=== PATIENT | male | born 1965 ===

== ENCOUNTER 2016-11-14 16:03 | Emergency (ER) | payer SELFPAY ==
[2016-11-14 16:14] VITALS: BMI 22.0
[2016-11-14 16:15] VITALS: BP 116/84; PULSE 104; RESP 18; TEMP 99.1; O2SAT 100
== END 2016-11-14 16:24 | disposition left against medical advice (07) ==
LOC: C.ER 16:03
DX: R09.89 Other specified symptoms and signs involving the circulatory and respiratory systems (principal); Z02.9 Encounter for administrative examinations, unspecified

== ENCOUNTER 2017-08-30 00:04 | Inpatient (IN) | payer MEDICAID ==
[2017-08-30 00:06] VITALS: BMI 22.0
[2017-08-30] MEDS ORDERED: Lactated Ringer's 1,000 ML IVB STA (00:49)
[2017-08-30 01:03] LABS: BASO % 0.6 % (0.0-2.0); EOS % 0.6 % (0.0-4.0); HEMOGLOBIN 9.6 g/dL (12.0-18.0); LYMPH # 0.4 K/uL (1.0-4.3); LYMPH % 12.1 % (20.0-40.0); MEAN CELL VOLUME 80.8 fL (80.0-94.0); MEAN CORPUSCULAR HEMOGLOBIN 27.7 pg (27.0-31.0); MEAN CORPUSCULAR HGB CONC 34.3 g/dL (33.0-37.0); MEAN PLATELET VOLUME 7.6 fL (7.2-11.7); MONO # 0.6 K/uL (0.0-0.8); MONO % 16.1 % (0.0-10.0); NEUT # 2.5 K/uL (1.8-7.0); NEUT % 70.6 % (50.0-75.0); NRBC % 0.1 % (0.0-2.0); RBC 3.47 Mil/uL (4.40-5.90); RED CELL DISTRIBUTION WIDTH 13.8 % (11.5-14.5); WHITE BLOOD COUNT 3.5 K/uL (4.8-10.8)
[2017-08-30 01:14] LABS: INR 1.2
[2017-08-30 01:15] LABS: ALB/GLOB RATIO 0.9 (1.0-2.1); ALBUMIN 3.3 g/dL (3.5-5.0); ALT/SGPT 25 U/L (21-72); AST/SGOT 41 U/L (17-59); BLOOD UREA NITROGEN 13 mg/dL (9-20); CALCIUM 8.1 mg/dl (8.6-10.4); GFR AFRICAN-AMERICAN > 60; GFR NON-AFRICAN AMERICAN > 60
[2017-08-30] MEDS ORDERED: Lactated Ringer's 1,000 ML ONE (01:15)
[2017-08-30] MEDS ORDERED: Fluconazole IV 400mg/200ml NS 200 ML IVPB STA (01:45)
--- NOTE | 2017-08-30 02:28 | C.PDOC ---
History Of Present Illness Pt c/o painful swallowing. Time Seen by Provider: 08/30/17 00:41 Chief Complaint (Nursing): ENT Problem History Per: Patient Onset/Duration Of Symptoms: Days (about 1 week) Current Symptoms Are (Timing): Worse Symptoms Have Been: Continuous Severity: Moderate Past Medical History Reviewed: Historical Data, Nursing Documentation, Vital Signs Vital Signs: Last Vital Signs Temp 100.0 F H 08/30/17 00:10 Pulse 100 H 08/30/17 00:10 Resp 18 08/30/17 00:10 BP 115/65 08/30/17 00:10 Pulse Ox 100 08/30/17 02:28 - Medical History PMH: Hepatitis (C), HIV (AIDS) Family History: States: Unknown Family Hx - Social History Hx Alcohol Use: No Hx Substance Use: Yes - Immunization History Hx Tetanus Toxoid Vaccination: No Hx Influenza Vaccination: Yes Hx Pneumococcal Vaccination: Yes Review Of Systems Except As Marked, All Systems Reviewed And Found Negative. Constitutional: Positive for: Malaise, Weight loss ENT: Positive for: Mouth Pain, Throat Pain Cardiovascular: Positive for: Chest Pain (esophagus) Respiratory: Positive for: Cough, Sputum. Negative for: Hemoptysis Gastrointestinal: Negative for: Vomiting, Abdominal Pain Genitourinary: Negative for: Dysuria Neurological: Negative for: Weakness, Numbness Physical Exam - Physical Exam Appears: No Acute Distress, Chronically Ill Skin: Normal Color, Warm, Dry Head: Atraumatic, Normacephalic Eye(s): bilateral: PERRL, EOMI Oral Mucosa: No Drooling, No Trismus Tongue: Other (Thrush) Throat: Erythema, No Drooling, No Mass, Other (Thrush) Neck: Normal ROM, Supple Lymphatic: No Adenopathy Cardiovascular: Rhythm Regular Respiratory: Normal Breath Sounds, No Accessory Muscle Use Gastrointestinal/Abdominal: Soft, No Tenderness, No Distention Back: No CVA Tenderness Extremity: Normal ROM, No Pedal Edema, No Calf Tenderness Neurological/Psych: Oriented x3, Normal Speech, Normal Motor, Normal Sensation ED Course And Treatment - Laboratory Results Result Diagrams: 08/30/17 00:59 08/30/17 00:59 Lab Interpretation: Abnormal Interpretation Of Abnormal: Lymphopenia O2 Sat by Pulse Oximetry: 100 Pulse Ox Interpretation: Normal - Radiology CXR: Interpreted by Me, Viewed By Me CXR Interpretation: Yes: No Acute Disease Progress - Interventions Interventions:: Observation, Intravenous fluid - Medications Administered Intravenous: Other (Diflucan) - Data Reviewed Data Reviewed: Lab, Diagnostic imaging, Old records - Continuity of Care Discussed patient case with:: Patient, ED Nurse, On-call PMD-pt unassigned - Patient Plan Patient Plan: Admission Disposition Discussed With : Tho Arteaga Comment: He accepted pt on his service. Doctor Will See Patient In The: Hospital Counseled Patient/Family Regarding: Studies Performed, Diagnosis - Disposition Disposition: HOSPITALIZED Disposition Time: 02:32 Condition: FAIR - Clinical Impression Clinical Impression: Thrush of mouth and esophagus, Odynophagia, History of HIV or AIDS
[2017-08-30] MEDS: Dextrose 5%/Lactated Ringer's 1,000 ML IV SCH ×2 (04:41→16:28)
--- NOTE | 2017-08-30 08:02 | RAD ---
HISTORY: Cough, SOB, h/o HIV COMPARISON: No prior. TECHNIQUE: Chest PA and lateral FINDINGS: LUNGS: Prominent lung markings noted at the inferior medial aspect of the right lung. Otherwise no evidence of focal infiltrate or consolidation in the lungs. PLEURA: No significant pleural effusion identified. No pneumothorax apparent. CARDIOVASCULAR: Normal. OSSEOUS STRUCTURES: No significant abnormalities. VISUALIZED UPPER ABDOMEN: Normal. OTHER FINDINGS: None. IMPRESSION: Prominent lung markings and possible mild bronchiectasis noted at the medial inferior aspect of the right lung. Otherwise no evidence of infiltrate or consolidation in the lungs.
[2017-08-30] MEDS: Tmp-Smz 800 mg-160 mg DS Tab PO SCH (10:52)
[2017-08-30] MEDS: Enoxaparin 30 mg Syringe SC SCH (10:52)
[2017-08-30] MEDS: Fluconazole IV 200mg/100 ml NS 100 ML IVPB SCH (10:53)
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
[2017-08-30] MEDS ORDERED: Efavirenz/Emtricitabine/Teno 1 TAB PO SCH (16:00)
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
[2017-08-30] MEDS ORDERED: Potassium Chloride 20 mEq/15 ml LIQ UD PO ONE (20:30)
[2017-08-31 08:08] LABS: BASO % 0.6 % (0.0-2.0); EOS # 0.1 K/uL (0.0-0.7); EOS % 1.9 % (0.0-4.0); HEMOGLOBIN 9.7 g/dL (12.0-18.0); LYMPH # 0.4 K/uL (1.0-4.3); MEAN CELL VOLUME 80.3 fL (80.0-94.0); MEAN CORPUSCULAR HEMOGLOBIN 27.4 pg (27.0-31.0); MEAN CORPUSCULAR HGB CONC 34.2 g/dL (33.0-37.0); MONO # 0.4 K/uL (0.0-0.8); MONO % 13.3 % (0.0-10.0); NEUT # 2.3 K/uL (1.8-7.0); NEUT % 72.2 % (50.0-75.0); NRBC % 0.1 % (0.0-2.0); PLATELET COUNT 233 K/uL (130-400); RBC 3.52 Mil/uL (4.40-5.90); RED CELL DISTRIBUTION WIDTH 13.9 % (11.5-14.5); WHITE BLOOD COUNT 3.2 K/uL (4.8-10.8)
[2017-08-31 08:34] LABS: ALB/GLOB RATIO 0.7 (1.0-2.1); ALBUMIN 2.4 g/dL (3.5-5.0); ALT/SGPT 21 U/L (21-72); AST/SGOT 29 U/L (17-59); BLOOD UREA NITROGEN 9 mg/dL (9-20); CALCIUM 7.6 mg/dl (8.6-10.4); GFR AFRICAN-AMERICAN > 60; GFR NON-AFRICAN AMERICAN > 60
[2017-08-31 09:04] LABS: ANISOCYTOSIS SLIGHT; BANDS 19 % (0-2); EOSINOPHIL 1 % (0-4); HYPOCHROMIC SLIGHT; LYMPHOCYTE 11 % (20-40); MICROCYTOSIS SLIGHT; MONOCYTE 18 % (0-10); MYELOCYTE 2 % (0-0); NEUTROPHIL 49 % (50-75); PLATELET ESTIMATE NORMAL (NORMAL); POIKILOCYTOSIS SLIGHT; TOTAL CELLS COUNTED 100
[2017-08-31 09:09] LABS: OVALOCYTES SLIGHT
[2017-08-31 09:10] LABS: TOXIC GRANULATION PRESENT
[2017-08-31] MEDS: Dextrose 5%/Lactated Ringer's 1,000 ML IV SCH ×3 (09:45→18:32)
[2017-08-31] MEDS: Tmp-Smz 800 mg-160 mg DS Tab PO SCH ×3 (09:46→21:26)
[2017-08-31] MEDS: Fluconazole IV 200mg/100 ml NS 100 ML IVPB SCH (09:59)
[2017-08-31] MEDS: Enoxaparin 30 mg Syringe SC SCH (09:59)
--- NOTE | 2017-08-31 11:41 | CP.PCM.PN ---
Subjective - Date & Time of Evaluation Date of Evaluation: 08/31/17 Time of Evaluation: 09:00 - Subjective Subjective: WEAK AND FEBRILE REFUSED BLOOD WORK IV ROCEPHIN ADED STARTED HAART RX Objective - Vital Signs/Intake and Output Vital Signs (last 24 hours): Temp Pulse Resp BP Pulse Ox 98.9 F 80 20 111/69 97 08/31/17 07:26 08/31/17 07:26 08/31/17 07:26 08/31/17 07:26 08/31/17 07:26 - Medications Medications: Current Medications Dolutegravir Sodium (Tivicay) 50 mg PO DAILY DRISS PRN Reason: Protocol Emtricitabine/Tenofovir (Truvada 200 Mg-300 Mg) 1 tab PO DAILY DRISS PRN Reason: Protocol Enoxaparin Sodium (Lovenox) 40 mg SC DAILY [facility] Last Admin: 08/31/17 09:59 Dose: 40 mg Dextrose/Lactated Ringer's (Dextrose 5%/Lactated Ringer's) 1,000 mls @ 100 mls/ hr IV .Q10H [facility] Last Admin: 08/31/17 10:32 Dose: 100 mls/hr Fluconazole (Diflucan Iv 200 Mg/100 Ml Ns) 100 mls @ 100 mls/hr IVPB DAILY DRISS PRN Reason: Protocol Last Admin: 08/31/17 09:59 Dose: 100 mls/hr Ceftriaxone Sodium 1 gm/ (Sodium Chloride) 100 mls @ 100 mls/hr IVPB DAILY DRISS PRN Reason: Protocol Tramadol HCl (Ultram) 50 mg PO TID PRN PRN Reason: Pain, moderate (4-7) Last Admin: 08/31/17 10:00 Dose: 50 mg Trimethoprim/Sulfamethoxazole (Bactrim Ds Tab) 1 tab PO Q12H DRISS PRN Reason: Protocol - Labs Labs: 08/31/17 08:01 08/31/17 08:01 PT 13.0 SECONDS (9.7-12.2) H 08/30/17 00:59 INR 1.2 08/30/17 00:59 APTT 23 SECONDS (21-34) 08/30/17 00:59 - Constitutional Appears: Non-toxic, Chronically Ill - Head Exam Head Exam: NORMOCEPHALIC - Eye Exam Eye Exam: PERRL - ENT Exam ENT Exam: Mucous Membranes Dry - Neck Exam Neck Exam: absent: Lymphadenopathy - Respiratory Exam Respiratory Exam: Decreased Breath Sounds - Cardiovascular Exam Cardiovascular Exam: REGULAR RHYTHM - GI/Abdominal Exam GI & Abdominal Exam: Distended, Soft - Rectal Exam Rectal Exam: Deferred - Exam Exam: NORMAL INSPECTION - Extremities Exam Extremities Exam: absent: Pedal Edema - Back Exam Back Exam: absent: CVA tenderness (L), CVA tenderness (R) - Neurological Exam Neurological Exam: Alert, Awake, Oriented x3 - Psychiatric Exam Psychiatric exam: Normal Mood - Skin Skin Exam: Dry Assessment and Plan (1) History of HIV or AIDS Status: Acute (2) Odynophagia Status: Acute (3) Thrush of mouth and esophagus Status: Acute
[2017-08-31] MEDS: cefTRIAXone IV 1 gm in Dextros 50 ML IVPB SCH (12:11)
[2017-08-31] MEDS: Emtricitabine-Tenofovir 200 mg-300 mg Tab PO SCH (12:12)
--- NOTE | 2017-08-31 23:45 | CP.PCM.PN ---
Subjective - Date & Time of Evaluation Date of Evaluation: 08/31/17 Time of Evaluation: 19:00 - Subjective Subjective: Pt seen and evalauted, is complaining of odynophagia, his oral intake is poor, c /o body aches, neck pain, back pain Objective - Vital Signs/Intake and Output Vital Signs (last 24 hours): Temp Pulse Resp BP Pulse Ox 99.0 F 76 20 120/74 98 08/31/17 18:24 08/31/17 16:00 08/31/17 16:00 08/31/17 16:00 08/31/17 16:00 Intake and Output: 08/31/17 09/01/17 18:59 06:59 Intake Total 1200 1280 Balance 1200 1280 - Medications Medications: Current Medications Acetaminophen (Tylenol 325mg Tab) 650 mg PO Q6 PRN PRN Reason: Fever >100.4 F Last Admin: 08/31/17 17:24 Dose: 650 mg Dolutegravir Sodium (Tivicay) 50 mg PO DAILY DRISS PRN Reason: Protocol Last Admin: 08/31/17 12:12 Dose: 50 mg Emtricitabine/Tenofovir (Truvada 200 Mg-300 Mg) 1 tab PO DAILY DRISS PRN Reason: Protocol Last Admin: 08/31/17 12:12 Dose: 1 tab Enoxaparin Sodium (Lovenox) 40 mg SC DAILY [facility] Dextrose/Lactated Ringer's (Dextrose 5%/Lactated Ringer's) 1,000 mls @ 100 mls/ hr IV .Q10H [facility] Last Admin: 08/31/17 18:32 Dose: Not Given Fluconazole (Diflucan Iv 200 Mg/100 Ml Ns) 100 mls @ 100 mls/hr IVPB DAILY DRISS PRN Reason: Protocol Last Admin: 08/31/17 09:59 Dose: 100 mls/hr Ceftriaxone Sodium (Rocephin Iv 1 Gm Duplex) 50 mls @ 100 mls/hr IVPB Q24H [facility]ISS PRN Reason: Protocol Last Admin: 08/31/17 12:11 Dose: 100 mls/hr Tramadol HCl (Ultram) 50 mg PO TID PRN PRN Reason: Pain, moderate (4-7) Last Admin: 08/31/17 21:37 Dose: 50 mg Trimethoprim/Sulfamethoxazole (Bactrim Ds Tab) 1 tab PO QID DRISS PRN Reason: Protocol Last Admin: 08/31/17 21:26 Dose: 1 tab - Labs Labs: 08/31/17 08:01 08/31/17 08:01 PT 13.0 SECONDS (9.7-12.2) H 08/30/17 00:59 INR 1.2 08/30/17 00:59 APTT 23 SECONDS (21-34) 08/30/17 00:59 - Constitutional Appears: No Acute Distress - Head Exam Head Exam: ATRAUMATIC, NORMAL INSPECTION, NORMOCEPHALIC - Eye Exam Eye Exam: EOMI, Normal appearance, PERRL Pupil Exam: NORMAL ACCOMODATION, PERRL - ENT Exam Additional comments: oral candisiasis with white plaques in oral mucosa - Neck Exam Neck Exam: Full ROM, Normal Inspection. absent: Lymphadenopathy - Respiratory Exam Respiratory Exam: Clear to Ausculation Bilateral, NORMAL BREATHING PATTERN - Cardiovascular Exam Cardiovascular Exam: REGULAR RHYTHM, +S1, +S2. absent: Murmur - GI/Abdominal Exam GI & Abdominal Exam: Soft, Normal Bowel Sounds. absent: Tenderness Assessment and Plan (1) History of HIV or AIDS Status: Acute (2) Odynophagia Status: Acute (3) Thrush of mouth and esophagus Status: Acute
[2017-09-01] MEDS: Dextrose 5%/Lactated Ringer's 1,000 ML IV SCH ×3 (01:30→14:19)
[2017-09-01] MEDS ORDERED: Tmp-Smz 800 mg-160 mg DS Tab PO SCH ×2 (10:00)
[2017-09-01] MEDS: Tmp-Smz 800 mg-160 mg DS Tab PO SCH ×4 (10:49→21:32)
[2017-09-01] MEDS: Emtricitabine-Tenofovir 200 mg-300 mg Tab PO SCH (10:50)
[2017-09-01] MEDS: Fluconazole IV 200mg/100 ml NS 100 ML IVPB SCH (10:55)
[2017-09-01] MEDS: Enoxaparin 40 mg Syringe SC SCH (11:00)
--- NOTE | 2017-09-01 11:46 | CP.PCM.PN ---
Subjective - Date & Time of Evaluation Date of Evaluation: 09/01/17 Time of Evaluation: 09:00 - Subjective Subjective: weak cachectic febrile iv rx ordered poor prognosis Objective - Vital Signs/Intake and Output Vital Signs (last 24 hours): Temp Pulse Resp BP Pulse Ox 100.3 F H 80 20 102/61 100 09/01/17 07:49 09/01/17 07:49 09/01/17 07:49 09/01/17 07:49 09/01/17 07:49 Intake and Output: 09/01/17 09/01/17 06:59 18:59 Intake Total 1280 Balance 1280 - Medications Medications: Current Medications Acetaminophen (Tylenol 325mg Tab) 650 mg PO Q6 PRN PRN Reason: Fever >100.4 F Last Admin: 08/31/17 17:24 Dose: 650 mg Dolutegravir Sodium (Tivicay) 50 mg PO DAILY DRISS PRN Reason: Protocol Last Admin: 09/01/17 10:50 Dose: 50 mg Emtricitabine/Tenofovir (Truvada 200 Mg-300 Mg) 1 tab PO DAILY DRISS PRN Reason: Protocol Last Admin: 09/01/17 10:50 Dose: 1 tab Enoxaparin Sodium (Lovenox) 40 mg SC DAILY [facility] Last Admin: 09/01/17 11:00 Dose: 40 mg Dextrose/Lactated Ringer's (Dextrose 5%/Lactated Ringer's) 1,000 mls @ 100 mls/ hr IV .Q10H [facility] Last Admin: 09/01/17 03:42 Dose: 100 mls/hr Fluconazole (Diflucan Iv 200 Mg/100 Ml Ns) 100 mls @ 100 mls/hr IVPB DAILY DRISS PRN Reason: Protocol Last Admin: 09/01/17 10:55 Dose: 100 mls/hr Ceftriaxone Sodium (Rocephin Iv 1 Gm Duplex) 50 mls @ 100 mls/hr IVPB Q24H [facility]ISS PRN Reason: Protocol Last Admin: 08/31/17 12:11 Dose: 100 mls/hr Tramadol HCl (Ultram) 50 mg PO TID PRN PRN Reason: Pain, moderate (4-7) Last Admin: 09/01/17 11:10 Dose: 50 mg Trimethoprim/Sulfamethoxazole (Bactrim Ds Tab) 1 tab PO QID DRISS PRN Reason: Protocol Last Admin: 09/01/17 10:49 Dose: 1 tab - Labs Labs: 08/31/17 08:01 08/31/17 08:01 PT 13.0 SECONDS (9.7-12.2) H 08/30/17 00:59 INR 1.2 08/30/17 00:59 APTT 23 SECONDS (21-34) 08/30/17 00:59 - Constitutional Appears: Cachectic, Chronically Ill - Head Exam Head Exam: NORMOCEPHALIC - Eye Exam Eye Exam: absent: Scleral icterus - ENT Exam ENT Exam: Mucous Membranes Dry. absent: Normal Oropharynx - Neck Exam Neck Exam: absent: Lymphadenopathy - Respiratory Exam Respiratory Exam: Decreased Breath Sounds - Cardiovascular Exam Cardiovascular Exam: REGULAR RHYTHM - GI/Abdominal Exam GI & Abdominal Exam: Distended, Soft - Rectal Exam Rectal Exam: Deferred - Exam Exam: NORMAL INSPECTION Assessment and Plan (1) History of HIV or AIDS Status: Acute (2) Odynophagia Status: Acute (3) Thrush of mouth and esophagus Status: Acute - Assessment and Plan (Free Text) Assessment: await cultures and serologies
[2017-09-01 12:08] LABS: HEMOGLOBIN 10.1 g/dL (12.0-18.0); MEAN CELL VOLUME 80.6 fL (80.0-94.0); MEAN CORPUSCULAR HEMOGLOBIN 26.7 pg (27.0-31.0); MEAN CORPUSCULAR HGB CONC 33.1 g/dL (33.0-37.0); MEAN PLATELET VOLUME 7.7 fL (7.2-11.7); RBC 3.77 Mil/uL (4.40-5.90); RED CELL DISTRIBUTION WIDTH 14.1 % (11.5-14.5)
[2017-09-01 12:12] LABS: WHITE BLOOD COUNT 12.6 K/uL (4.8-10.8)
[2017-09-01 12:14] LABS: ALB/GLOB RATIO 0.8 (1.0-2.1); ALBUMIN 2.7 g/dL (3.5-5.0); ALT/SGPT 19 U/L (21-72); AST/SGOT 32 U/L (17-59); BLOOD UREA NITROGEN 7 mg/dL (9-20); GFR AFRICAN-AMERICAN > 60; GFR NON-AFRICAN AMERICAN > 60
[2017-09-01] MEDS: cefTRIAXone IV 1 gm in Dextros 50 ML IVPB SCH (12:50)
[2017-09-01 15:11] LABS: HEPATITIS B SURFACE AG Negative (NEGATIVE)
[2017-09-01 15:16] LABS: HEPATITIS A IGM NEGATIVE (NEGATIVE); HEPATITIS B CORE AB NEGATIVE (NEGATIVE)
[2017-09-01] MEDS: Oxycodone/Acetaminophen 5/325 mg Tab PO PRN ×2 (16:06→22:43)
[2017-09-01 16:59] LABS: HEPATITIS C ANTIBODY REACTIVE (NEGATIVE)
[2017-09-02] MEDS: Dextrose 5%/Lactated Ringer's 1,000 ML IV SCH (05:24)
--- NOTE | 2017-09-02 09:11 | CP.PCM.PN ---
Subjective - Date & Time of Evaluation Date of Evaluation: 09/01/17 Time of Evaluation: 21:00 - Subjective Subjective: Pt seen and examined at bedside, weak cachectic febrile iv rx ordered poor prognosis Objective - Vital Signs/Intake and Output Vital Signs (last 24 hours): Temp Pulse Resp BP Pulse Ox 98.5 F 78 20 110/69 97 09/02/17 08:07 09/02/17 08:07 09/02/17 08:07 09/02/17 08:07 09/02/17 08:07 Intake and Output: 09/02/17 09/02/17 06:59 18:59 Intake Total 480 Balance 480 - Medications Medications: Current Medications Acetaminophen (Tylenol 325mg Tab) 650 mg PO Q6 PRN PRN Reason: Fever >100.4 F Last Admin: 08/31/17 17:24 Dose: 650 mg Dolutegravir Sodium (Tivicay) 50 mg PO DAILY DRISS PRN Reason: Protocol Last Admin: 09/01/17 10:50 Dose: 50 mg Emtricitabine/Tenofovir (Truvada 200 Mg-300 Mg) 1 tab PO DAILY DRISS PRN Reason: Protocol Last Admin: 09/01/17 10:50 Dose: 1 tab Enoxaparin Sodium (Lovenox) 40 mg SC DAILY [facility] Last Admin: 09/01/17 11:00 Dose: 40 mg Fluconazole (Diflucan Iv 200 Mg/100 Ml Ns) 100 mls @ 100 mls/hr IVPB DAILY DRISS PRN Reason: Protocol Last Admin: 09/01/17 10:55 Dose: 100 mls/hr Ceftriaxone Sodium (Rocephin Iv 1 Gm Duplex) 50 mls @ 100 mls/hr IVPB Q24H DRISS PRN Reason: Protocol Last Admin: 09/01/17 12:50 Dose: 100 mls/hr Oxycodone/Acetaminophen (Percocet 5/325 Mg Tab) 1 tab PO Q6H PRN PRN Reason: Pain, moderate (4-7) Stop: 09/04/17 12:47 Last Admin: 09/01/17 22:43 Dose: 1 tab Trimethoprim/Sulfamethoxazole (Bactrim Ds Tab) 1 tab PO QID DRISS PRN Reason: Protocol Last Admin: 09/01/17 21:32 Dose: 1 tab - Labs Labs: 09/01/17 11:37 09/01/17 11:37 PT 13.0 SECONDS (9.7-12.2) H 08/30/17 00:59 INR 1.2 08/30/17 00:59 APTT 23 SECONDS (21-34) 08/30/17 00:59 - Constitutional Appears: No Acute Distress, Cachectic, Chronically Ill - Head Exam Head Exam: ATRAUMATIC, NORMAL INSPECTION, NORMOCEPHALIC - Eye Exam Eye Exam: EOMI, Normal appearance, PERRL Pupil Exam: NORMAL ACCOMODATION, PERRL - ENT Exam ENT Exam: Mucous Membranes Moist, Normal Exam - Respiratory Exam Respiratory Exam: Clear to Ausculation Bilateral, NORMAL BREATHING PATTERN - Cardiovascular Exam Cardiovascular Exam: REGULAR RHYTHM, +S1, +S2. absent: Murmur - GI/Abdominal Exam GI & Abdominal Exam: Soft, Normal Bowel Sounds. absent: Tenderness - Rectal Exam Rectal Exam: Deferred Assessment and Plan (1) History of HIV or AIDS Status: Acute (2) Odynophagia Status: Acute (3) Thrush of mouth and esophagus Status: Acute
--- NOTE | 2017-09-02 09:13 | CP.PCM.PN ---
Subjective - Date & Time of Evaluation Date of Evaluation: 09/02/17 Time of Evaluation: 18:00 - Subjective Subjective: Pt seen and examined at bedside, still weak, lethargic, on medical management Objective - Vital Signs/Intake and Output Vital Signs (last 24 hours): Temp Pulse Resp BP Pulse Ox 98.5 F 78 20 110/69 97 09/02/17 08:07 09/02/17 08:07 09/02/17 08:07 09/02/17 08:07 09/02/17 08:07 Intake and Output: 09/02/17 09/02/17 06:59 18:59 Intake Total 480 Balance 480 - Medications Medications: Current Medications Acetaminophen (Tylenol 325mg Tab) 650 mg PO Q6 PRN PRN Reason: Fever >100.4 F Last Admin: 08/31/17 17:24 Dose: 650 mg Dolutegravir Sodium (Tivicay) 50 mg PO DAILY DRISS PRN Reason: Protocol Last Admin: 09/01/17 10:50 Dose: 50 mg Emtricitabine/Tenofovir (Truvada 200 Mg-300 Mg) 1 tab PO DAILY DRISS PRN Reason: Protocol Last Admin: 09/01/17 10:50 Dose: 1 tab Enoxaparin Sodium (Lovenox) 40 mg SC DAILY DRISS Last Admin: 09/01/17 11:00 Dose: 40 mg Fluconazole (Diflucan Iv 200 Mg/100 Ml Ns) 100 mls @ 100 mls/hr IVPB DAILY DRISS PRN Reason: Protocol Last Admin: 09/01/17 10:55 Dose: 100 mls/hr Ceftriaxone Sodium (Rocephin Iv 1 Gm Duplex) 50 mls @ 100 mls/hr IVPB Q24H DRISS PRN Reason: Protocol Last Admin: 09/01/17 12:50 Dose: 100 mls/hr Oxycodone/Acetaminophen (Percocet 5/325 Mg Tab) 1 tab PO Q6H PRN PRN Reason: Pain, moderate (4-7) Stop: 09/04/17 12:47 Last Admin: 09/01/17 22:43 Dose: 1 tab Trimethoprim/Sulfamethoxazole (Bactrim Ds Tab) 1 tab PO QID DRISS PRN Reason: Protocol Last Admin: 09/01/17 21:32 Dose: 1 tab - Labs Labs: 09/01/17 11:37 09/01/17 11:37 PT 13.0 SECONDS (9.7-12.2) H 08/30/17 00:59 INR 1.2 08/30/17 00:59 APTT 23 SECONDS (21-34) 08/30/17 00:59 Assessment and Plan (1) History of HIV or AIDS Status: Acute (2) Odynophagia Status: Acute (3) Thrush of mouth and esophagus Status: Acute
[2017-09-02] MEDS: Tmp-Smz 800 mg-160 mg DS Tab PO SCH ×4 (10:00→22:16)
[2017-09-02] MEDS: Enoxaparin 40 mg Syringe SC SCH (10:00)
[2017-09-02] MEDS: Emtricitabine-Tenofovir 200 mg-300 mg Tab PO SCH (10:00)
[2017-09-02] MEDS: Fluconazole IV 200mg/100 ml NS 100 ML IVPB SCH (10:00)
[2017-09-02] MEDS: cefTRIAXone IV 1 gm in Dextros 50 ML IVPB SCH (12:00)
[2017-09-02] MEDS: Oxycodone/Acetaminophen 5/325 mg Tab PO PRN (13:38)
--- NOTE | 2017-09-02 16:58 | CP.PCM.PN ---
Subjective - Date & Time of Evaluation Date of Evaluation: 09/02/17 Time of Evaluation: 08:00 - Subjective Subjective: IV rx in progress awake alert t max lower Objective - Vital Signs/Intake and Output Vital Signs (last 24 hours): Temp Pulse Resp BP Pulse Ox 99.3 F 84 20 107/68 98 09/02/17 16:00 09/02/17 16:00 09/02/17 16:00 09/02/17 16:00 09/02/17 16:00 Intake and Output: 09/02/17 09/02/17 06:59 18:59 Intake Total 480 Balance 480 - Medications Medications: Current Medications Acetaminophen (Tylenol 325mg Tab) 650 mg PO Q6 PRN PRN Reason: Fever >100.4 F Last Admin: 08/31/17 17:24 Dose: 650 mg Dolutegravir Sodium (Tivicay) 50 mg PO DAILY DRISS PRN Reason: Protocol Last Admin: 09/02/17 10:00 Dose: 50 mg Emtricitabine/Tenofovir (Truvada 200 Mg-300 Mg) 1 tab PO DAILY DRISS PRN Reason: Protocol Last Admin: 09/02/17 10:00 Dose: 1 tab Enoxaparin Sodium (Lovenox) 40 mg SC DAILY [facility] Last Admin: 09/02/17 10:00 Dose: Not Given Fluconazole (Diflucan Iv 200 Mg/100 Ml Ns) 100 mls @ 100 mls/hr IVPB DAILY DRISS PRN Reason: Protocol Last Admin: 09/02/17 10:00 Dose: Not Given Ceftriaxone Sodium (Rocephin Iv 1 Gm Duplex) 50 mls @ 100 mls/hr IVPB Q24H DRISS PRN Reason: Protocol Last Admin: 09/02/17 12:00 Dose: Not Given Oxycodone/Acetaminophen (Percocet 5/325 Mg Tab) 1 tab PO Q6H PRN PRN Reason: Pain, moderate (4-7) Stop: 09/04/17 12:47 Last Admin: 09/02/17 13:38 Dose: 1 tab Trimethoprim/Sulfamethoxazole (Bactrim Ds Tab) 1 tab PO QID DRISS PRN Reason: Protocol Last Admin: 09/02/17 14:40 Dose: 1 tab - Labs Labs: 09/01/17 11:37 09/01/17 11:37 PT 13.0 SECONDS (9.7-12.2) H 08/30/17 00:59 INR 1.2 08/30/17 00:59 APTT 23 SECONDS (21-34) 08/30/17 00:59 - Constitutional Appears: Non-toxic, Cachectic, Chronically Ill - Head Exam Head Exam: NORMOCEPHALIC - Eye Exam Eye Exam: PERRL - ENT Exam ENT Exam: Mucous Membranes Dry - Neck Exam Neck Exam: absent: Lymphadenopathy - Respiratory Exam Respiratory Exam: Decreased Breath Sounds - Cardiovascular Exam Cardiovascular Exam: REGULAR RHYTHM - GI/Abdominal Exam GI & Abdominal Exam: Distended, Soft - Rectal Exam Rectal Exam: Deferred - Exam Exam: NORMAL INSPECTION - Extremities Exam Extremities Exam: absent: Pedal Edema - Back Exam Back Exam: absent: CVA tenderness (L), CVA tenderness (R) Assessment and Plan (1) History of HIV or AIDS Status: Acute (2) Odynophagia Status: Acute (3) Thrush of mouth and esophagus Status: Acute - Assessment and Plan (Free Text) Assessment: cont iv rx
[2017-09-03] MEDS: Oxycodone/Acetaminophen 5/325 mg Tab PO PRN ×3 (02:46→19:47)
[2017-09-03] MEDS: Fluconazole IV 200mg/100 ml NS 100 ML IVPB SCH (10:11)
[2017-09-03] MEDS: Enoxaparin 40 mg Syringe SC SCH (10:12)
[2017-09-03] MEDS: Tmp-Smz 800 mg-160 mg DS Tab PO SCH ×4 (10:16→21:25)
[2017-09-03] MEDS: Emtricitabine-Tenofovir 200 mg-300 mg Tab PO SCH (10:17)
[2017-09-03] MEDS: cefTRIAXone IV 1 gm in Dextros 50 ML IVPB SCH (11:30)
--- NOTE | 2017-09-03 18:28 | CP.PCM.PN ---
Subjective - Date & Time of Evaluation Date of Evaluation: 09/03/17 Time of Evaluation: 09:00 - Subjective Subjective: REFUSES IV ANTIBIOTICS Objective - Vital Signs/Intake and Output Vital Signs (last 24 hours): Temp Pulse Resp BP Pulse Ox 98.5 F 80 20 118/75 99 09/03/17 16:00 09/03/17 16:00 09/03/17 16:00 09/03/17 16:00 09/03/17 16:00 Intake and Output: 09/03/17 09/03/17 06:59 18:59 Intake Total 400 Balance 400 - Medications Medications: Current Medications Acetaminophen (Tylenol 325mg Tab) 650 mg PO Q6 PRN PRN Reason: Fever >100.4 F Last Admin: 08/31/17 17:24 Dose: 650 mg Dolutegravir Sodium (Tivicay) 50 mg PO DAILY DRISS PRN Reason: Protocol Last Admin: 09/03/17 10:17 Dose: 50 mg Emtricitabine/Tenofovir (Truvada 200 Mg-300 Mg) 1 tab PO DAILY DRISS PRN Reason: Protocol Last Admin: 09/03/17 10:17 Dose: 1 tab Enoxaparin Sodium (Lovenox) 40 mg SC DAILY [facility] Last Admin: 09/03/17 10:12 Dose: Not Given Fluconazole (Diflucan) 200 mg PO QPM DRISS PRN Reason: Protocol Last Admin: 09/03/17 17:17 Dose: 200 mg Oxycodone/Acetaminophen (Percocet 5/325 Mg Tab) 1 tab PO Q6H PRN PRN Reason: Pain, moderate (4-7) Stop: 09/04/17 12:47 Last Admin: 09/03/17 12:11 Dose: 1 tab Trimethoprim/Sulfamethoxazole (Bactrim Ds Tab) 1 tab PO QID DRISS PRN Reason: Protocol Last Admin: 09/03/17 17:17 Dose: 1 tab - Labs Labs: 09/01/17 11:37 09/01/17 11:37 PT 13.0 SECONDS (9.7-12.2) H 08/30/17 00:59 INR 1.2 08/30/17 00:59 APTT 23 SECONDS (21-34) 08/30/17 00:59 Assessment and Plan (1) History of HIV or AIDS Status: Acute (2) Odynophagia Status: Acute (3) Thrush of mouth and esophagus Status: Acute
[2017-09-03] MEDS ORDERED: Aluminum Hydroxide/Magnesium Hydroxide Susp (30 mL) PO PRN (21:47)
--- NOTE | 2017-09-03 22:51 | CP.PCM.PN ---
Subjective - Date & Time of Evaluation Date of Evaluation: 09/03/17 Time of Evaluation: 19:45 - Subjective Subjective: Pt seen and examined at bedside, is waiting for [facility].no distress c/o chronic pain , On HAART therapy and antifungal therapy, he refuses IV line, managing medically Objective - Vital Signs/Intake and Output Vital Signs (last 24 hours): Temp Pulse Resp BP Pulse Ox 98.5 F 80 20 118/75 99 09/03/17 16:00 09/03/17 16:00 09/03/17 16:00 09/03/17 16:00 09/03/17 16:00 Intake and Output: 09/03/17 09/04/17 18:59 06:59 Intake Total 400 Balance 400 - Medications Medications: Current Medications Acetaminophen (Tylenol 325mg Tab) 650 mg PO Q6 PRN PRN Reason: Fever >100.4 F Last Admin: 08/31/17 17:24 Dose: 650 mg Al Hydrox/Mg Hydrox/Simethicone (Maalox 30 Ml) 15 ml PO QID PRN PRN Reason: Indigestion / Heartburn Last Admin: 09/03/17 22:06 Dose: 15 ml Dolutegravir Sodium (Tivicay) 50 mg PO DAILY DRISS PRN Reason: Protocol Last Admin: 09/03/17 10:17 Dose: 50 mg Emtricitabine/Tenofovir (Truvada 200 Mg-300 Mg) 1 tab PO DAILY DRISS PRN Reason: Protocol Last Admin: 09/03/17 10:17 Dose: 1 tab Enoxaparin Sodium (Lovenox) 40 mg SC DAILY [facility] Last Admin: 09/03/17 10:12 Dose: Not Given Fluconazole (Diflucan) 200 mg PO QPM DRISS PRN Reason: Protocol Last Admin: 09/03/17 17:17 Dose: 200 mg Oxycodone/Acetaminophen (Percocet 5/325 Mg Tab) 1 tab PO Q6H PRN PRN Reason: Pain, moderate (4-7) Stop: 09/04/17 12:47 Last Admin: 09/03/17 19:47 Dose: 1 tab Trimethoprim/Sulfamethoxazole (Bactrim Ds Tab) 1 tab PO QID DRISS PRN Reason: Protocol Last Admin: 09/03/17 21:25 Dose: 1 tab - Labs Labs: 09/01/17 11:37 09/01/17 11:37 PT 13.0 SECONDS (9.7-12.2) H 08/30/17 00:59 INR 1.2 08/30/17 00:59 APTT 23 SECONDS (21-34) 08/30/17 00:59 - Constitutional Appears: No Acute Distress, Chronically Ill - Head Exam Head Exam: ATRAUMATIC, NORMAL INSPECTION, NORMOCEPHALIC - Eye Exam Eye Exam: EOMI, Normal appearance, PERRL Pupil Exam: NORMAL ACCOMODATION, PERRL - Respiratory Exam Respiratory Exam: Decreased Breath Sounds, Rales, Rhonchi - Cardiovascular Exam Cardiovascular Exam: REGULAR RHYTHM, +S1, +S2. absent: Murmur - GI/Abdominal Exam GI & Abdominal Exam: Soft, Normal Bowel Sounds. absent: Tenderness Assessment and Plan (1) History of HIV or AIDS Status: Acute (2) Odynophagia Status: Acute (3) Thrush of mouth and esophagus Status: Acute
[2017-09-04] MEDS: Oxycodone/Acetaminophen 5/325 mg Tab PO PRN ×3 (03:01→20:52)
[2017-09-04] MEDS: Emtricitabine-Tenofovir 200 mg-300 mg Tab PO SCH (09:22)
[2017-09-04] MEDS: Tmp-Smz 800 mg-160 mg DS Tab PO SCH ×4 (09:22→21:04)
[2017-09-04] MEDS: Enoxaparin 40 mg Syringe SC SCH (09:24)
[2017-09-04 11:38] LABS: % CD4 (T HELPER CELL) 1 Percent (30-61); % CD8 (SUPPRESSOR T CELL) 75 Percent (12-42); ABSOLUTE CD4 CELLS <20 Cells/mcL (490-1740); ABSOLUTE CD8 CELLS 421 Cells/mcL (180-1170); ABSOLUTE LYMPHOCYTES 563 Cells/mcL (850-3900); HELPER/SUPPRESSOR RATIO 0.01 Ratio (0.86-5.00)
--- NOTE | 2017-09-04 15:46 | CP.PCM.PN ---
Subjective - Date & Time of Evaluation Date of Evaluation: 09/04/17 Time of Evaluation: 18:00 - Subjective Subjective: Pt seen and examined, is waiting for placement in [facility], oropharangeal candiasis improving, pt c/o pain all over the body Objective - Vital Signs/Intake and Output Vital Signs (last 24 hours): Temp Pulse Resp BP Pulse Ox 98.2 F 94 H 20 99/63 L 99 09/04/17 08:00 09/04/17 08:00 09/04/17 08:00 09/04/17 08:00 09/04/17 08:00 Intake and Output: 09/04/17 09/04/17 06:59 18:59 Intake Total 400 Balance 400 - Medications Medications: Current Medications Acetaminophen (Tylenol 325mg Tab) 650 mg PO Q6 PRN PRN Reason: Fever >100.4 F Last Admin: 08/31/17 17:24 Dose: 650 mg Al Hydrox/Mg Hydrox/Simethicone (Maalox 30 Ml) 15 ml PO QID PRN PRN Reason: Indigestion / Heartburn Last Admin: 09/03/17 22:06 Dose: 15 ml Dolutegravir Sodium (Tivicay) 50 mg PO DAILY DRISS PRN Reason: Protocol Last Admin: 09/04/17 09:22 Dose: 50 mg Emtricitabine/Tenofovir (Truvada 200 Mg-300 Mg) 1 tab PO DAILY DRISS PRN Reason: Protocol Last Admin: 09/04/17 09:22 Dose: 1 tab Enoxaparin Sodium (Lovenox) 40 mg SC DAILY [facility] Last Admin: 09/04/17 09:24 Dose: Not Given Fluconazole (Diflucan) 200 mg PO QPM DRISS PRN Reason: Protocol Last Admin: 09/03/17 17:17 Dose: 200 mg Trimethoprim/Sulfamethoxazole (Bactrim Ds Tab) 1 tab PO QID DRISS PRN Reason: Protocol Last Admin: 09/04/17 13:29 Dose: 1 tab - Labs Labs: 09/01/17 11:37 09/01/17 11:37 PT 13.0 SECONDS (9.7-12.2) H 08/30/17 00:59 INR 1.2 08/30/17 00:59 APTT 23 SECONDS (21-34) 08/30/17 00:59 - Constitutional Appears: No Acute Distress - Head Exam Head Exam: ATRAUMATIC, NORMAL INSPECTION, NORMOCEPHALIC - Eye Exam Eye Exam: EOMI, Normal appearance, PERRL Pupil Exam: NORMAL ACCOMODATION, PERRL - Respiratory Exam Respiratory Exam: Decreased Breath Sounds, Rales, Rhonchi - Cardiovascular Exam Cardiovascular Exam: REGULAR RHYTHM, +S1, +S2. absent: Murmur Assessment and Plan (1) History of HIV or AIDS Status: Acute (2) Odynophagia Status: Acute (3) Thrush of mouth and esophagus Status: Acute
--- NOTE | 2017-09-04 18:18 | CP.PCM.PN ---
Subjective - Date & Time of Evaluation Date of Evaluation: 09/04/17 Time of Evaluation: 08:00 - Subjective Subjective: afeb alert nad Objective - Vital Signs/Intake and Output Vital Signs (last 24 hours): Temp Pulse Resp BP Pulse Ox 99.2 F 86 20 110/66 100 09/04/17 15:00 09/04/17 15:00 09/04/17 15:00 09/04/17 15:00 09/04/17 15:00 Intake and Output: 09/04/17 09/04/17 06:59 18:59 Intake Total 400 Balance 400 - Medications Medications: Current Medications Acetaminophen (Tylenol 325mg Tab) 650 mg PO Q6 PRN PRN Reason: Fever >100.4 F Last Admin: 08/31/17 17:24 Dose: 650 mg Al Hydrox/Mg Hydrox/Simethicone (Maalox 30 Ml) 15 ml PO QID PRN PRN Reason: Indigestion / Heartburn Last Admin: 09/03/17 22:06 Dose: 15 ml Dolutegravir Sodium (Tivicay) 50 mg PO DAILY DRISS PRN Reason: Protocol Last Admin: 09/04/17 09:22 Dose: 50 mg Emtricitabine/Tenofovir (Truvada 200 Mg-300 Mg) 1 tab PO DAILY DRSIS PRN Reason: Protocol Last Admin: 09/04/17 09:22 Dose: 1 tab Enoxaparin Sodium (Lovenox) 40 mg SC DAILY [facility] Last Admin: 09/04/17 09:24 Dose: Not Given Fluconazole (Diflucan) 200 mg PO QPM DRISS PRN Reason: Protocol Last Admin: 09/04/17 17:13 Dose: 200 mg Trimethoprim/Sulfamethoxazole (Bactrim Ds Tab) 1 tab PO QID DRISS PRN Reason: Protocol Last Admin: 09/04/17 17:12 Dose: 1 tab - Labs Labs: 09/01/17 11:37 09/01/17 11:37 PT 13.0 SECONDS (9.7-12.2) H 08/30/17 00:59 INR 1.2 08/30/17 00:59 APTT 23 SECONDS (21-34) 08/30/17 00:59 - Constitutional Appears: Non-toxic, Chronically Ill - Head Exam Head Exam: NORMOCEPHALIC - Eye Exam Eye Exam: PERRL - ENT Exam ENT Exam: Mucous Membranes Dry - Neck Exam Neck Exam: absent: Lymphadenopathy - Respiratory Exam Respiratory Exam: Decreased Breath Sounds Assessment and Plan (1) History of HIV or AIDS Status: Acute (2) Odynophagia Status: Acute (3) Thrush of mouth and esophagus Status: Acute
[2017-09-05] MEDS: Emtricitabine-Tenofovir 200 mg-300 mg Tab PO SCH (10:22)
[2017-09-05] MEDS: Oxycodone/Acetaminophen 5/325 mg Tab PO PRN (10:22)
[2017-09-05] MEDS: Tmp-Smz 800 mg-160 mg DS Tab PO SCH ×5 (10:22→21:42)
[2017-09-05] MEDS: Enoxaparin 40 mg Syringe SC SCH (10:23)
[2017-09-05 17:34] VITALS: RESP 20
--- NOTE | 2017-09-06 00:11 | CP.PCM.PN ---
Subjective - Date & Time of Evaluation Date of Evaluation: 09/05/17 Time of Evaluation: 19:00 - Subjective Subjective: Patient SEEN AND EXAMINED AT BEDSIDE Objective - Vital Signs/Intake and Output Vital Signs (last 24 hours): Temp Pulse Resp BP Pulse Ox 98.3 F 90 20 110/62 100 09/05/17 15:00 09/05/17 15:00 09/05/17 15:00 09/05/17 15:00 09/05/17 15:00 Intake and Output: 09/05/17 09/06/17 18:59 06:59 Intake Total 300 480 Balance 300 480 - Medications Medications: Current Medications Acetaminophen (Tylenol 325mg Tab) 650 mg PO Q6 PRN PRN Reason: Fever >100.4 F Last Admin: 09/05/17 08:09 Dose: 650 mg Al Hydrox/Mg Hydrox/Simethicone (Maalox 30 Ml) 15 ml PO QID PRN PRN Reason: Indigestion / Heartburn Last Admin: 09/03/17 22:06 Dose: 15 ml Dolutegravir Sodium (Tivicay) 50 mg PO DAILY DRISS PRN Reason: Protocol Last Admin: 09/05/17 10:22 Dose: 50 mg Emtricitabine/Tenofovir (Truvada 200 Mg-300 Mg) 1 tab PO DAILY DRISS PRN Reason: Protocol Last Admin: 09/05/17 10:22 Dose: 1 tab Enoxaparin Sodium (Lovenox) 40 mg SC DAILY [facility] Last Admin: 09/05/17 10:23 Dose: Not Given Fluconazole (Diflucan) 200 mg PO QPM DRISS PRN Reason: Protocol Last Admin: 09/05/17 17:53 Dose: 200 mg Oxycodone/Acetaminophen (Percocet 5/325 Mg Tab) 1 tab PO Q6H PRN PRN Reason: Pain, moderate (4-7) Stop: 09/07/17 20:35 Last Admin: 09/05/17 10:22 Dose: 1 tab Trimethoprim/Sulfamethoxazole (Bactrim Ds Tab) 1 tab PO QID DRISS PRN Reason: Protocol Last Admin: 09/05/17 21:42 Dose: Not Given - Labs Labs: 09/01/17 11:37 09/01/17 11:37 PT 13.0 SECONDS (9.7-12.2) H 08/30/17 00:59 INR 1.2 08/30/17 00:59 APTT 23 SECONDS (21-34) 08/30/17 00:59 Assessment and Plan (1) History of HIV or AIDS Status: Acute (2) Odynophagia Status: Acute (3) Thrush of mouth and esophagus Status: Acute
[2017-09-06] MEDS: Enoxaparin 40 mg Syringe SC SCH (10:00)
[2017-09-06] MEDS: Emtricitabine-Tenofovir 200 mg-300 mg Tab PO SCH (10:00)
[2017-09-06] MEDS: Tmp-Smz 800 mg-160 mg DS Tab PO SCH ×4 (10:00→21:33)
[2017-09-06] MEDS: Oxycodone/Acetaminophen 5/325 mg Tab PO PRN (12:14)
--- NOTE | 2017-09-06 14:41 | CP.PCM.PN ---
Subjective - Date & Time of Evaluation Date of Evaluation: 09/06/17 Time of Evaluation: 10:00 - Subjective Subjective: afebrile iv rx in progress Objective - Vital Signs/Intake and Output Vital Signs (last 24 hours): Temp Pulse Resp BP Pulse Ox 98.8 F 98 H 20 96/62 L 96 09/06/17 07:41 09/06/17 07:41 09/06/17 07:41 09/06/17 07:41 09/06/17 07:41 Intake and Output: 09/06/17 09/06/17 06:59 18:59 Intake Total 480 1000 Balance 480 1000 - Medications Medications: Current Medications Acetaminophen (Tylenol 325mg Tab) 650 mg PO Q6 PRN PRN Reason: Fever >100.4 F Last Admin: 09/05/17 08:09 Dose: 650 mg Al Hydrox/Mg Hydrox/Simethicone (Maalox 30 Ml) 15 ml PO QID PRN PRN Reason: Indigestion / Heartburn Last Admin: 09/03/17 22:06 Dose: 15 ml Dolutegravir Sodium (Tivicay) 50 mg PO DAILY DRISS PRN Reason: Protocol Last Admin: 09/06/17 10:00 Dose: 50 mg Emtricitabine/Tenofovir (Truvada 200 Mg-300 Mg) 1 tab PO DAILY DRISS PRN Reason: Protocol Last Admin: 09/06/17 10:00 Dose: 1 tab Enoxaparin Sodium (Lovenox) 40 mg SC DAILY [facility] Last Admin: 09/06/17 10:00 Dose: Not Given Fluconazole (Diflucan) 200 mg PO QPM DRISS PRN Reason: Protocol Last Admin: 09/05/17 17:53 Dose: 200 mg Oxycodone/Acetaminophen (Percocet 5/325 Mg Tab) 1 tab PO Q6H PRN PRN Reason: Pain, moderate (4-7) Stop: 09/07/17 20:35 Last Admin: 09/06/17 12:14 Dose: 1 tab Trimethoprim/Sulfamethoxazole (Bactrim Ds Tab) 1 tab PO QID DRISS PRN Reason: Protocol Last Admin: 09/06/17 14:01 Dose: 1 tab - Labs Labs: 09/01/17 11:37 09/01/17 11:37 PT 13.0 SECONDS (9.7-12.2) H 08/30/17 00:59 INR 1.2 08/30/17 00:59 APTT 23 SECONDS (21-34) 08/30/17 00:59 - Constitutional Appears: Well - Head Exam Head Exam: ATRAUMATIC, NORMAL INSPECTION, NORMOCEPHALIC - Eye Exam Eye Exam: EOMI, Normal appearance, PERRL Pupil Exam: NORMAL ACCOMODATION, PERRL - ENT Exam ENT Exam: Mucous Membranes Moist, Normal Exam - Neck Exam Neck Exam: Full ROM, Normal Inspection. absent: Lymphadenopathy - Respiratory Exam Respiratory Exam: Clear to Ausculation Bilateral, NORMAL BREATHING PATTERN - Cardiovascular Exam Cardiovascular Exam: REGULAR RHYTHM, +S1, +S2. absent: Murmur - GI/Abdominal Exam GI & Abdominal Exam: Soft, Normal Bowel Sounds. absent: Tenderness - Rectal Exam Rectal Exam: NORMAL INSPECTION - Exam Exam: Circumcision, NORMAL INSPECTION - Extremities Exam Extremities Exam: Full ROM, Normal Capillary Refill, Normal Inspection. absent : Joint Swelling, Pedal Edema - Back Exam Back Exam: NORMAL INSPECTION - Neurological Exam Neurological Exam: Alert, Awake, CN II-XII Intact, Normal Gait, Oriented x3 - Psychiatric Exam Psychiatric exam: Normal Affect, Normal Mood - Skin Skin Exam: Dry, Intact, Normal Color, Warm Assessment and Plan (1) History of HIV or AIDS Status: Acute (2) Odynophagia Status: Acute (3) Thrush of mouth and esophagus Status: Acute
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
[2017-09-07] MEDS: Oxycodone/Acetaminophen 5/325 mg Tab PO PRN ×2 (08:16→14:04)
[2017-09-07] MEDS: Tmp-Smz 800 mg-160 mg DS Tab PO SCH ×4 (10:02→21:31)
[2017-09-07] MEDS: Emtricitabine-Tenofovir 200 mg-300 mg Tab PO SCH (10:02)
[2017-09-07] MEDS: Enoxaparin 40 mg Syringe SC SCH (10:03)
[2017-09-07] MEDS ORDERED: Oxycodone/Acetaminophen 5/325 mg Tab PO ONE (22:17)
--- NOTE | 2017-09-08 00:09 | CP.PCM.PN ---
Subjective - Date & Time of Evaluation Date of Evaluation: 09/07/17 Time of Evaluation: 18:00 - Subjective Subjective: pt seen and examined, on HAART therapy, antifunfgal, pt CD4 count is less then 20, pt is for [facility] Objective - Vital Signs/Intake and Output Vital Signs (last 24 hours): Temp Pulse Resp BP Pulse Ox 97.5 F L 90 20 107/76 99 09/07/17 15:15 09/07/17 15:15 09/07/17 15:15 09/07/17 15:15 09/07/17 15:15 Intake and Output: 09/07/17 09/08/17 18:59 06:59 Intake Total 1150 480 Balance 1150 480 - Medications Medications: Current Medications Acetaminophen (Tylenol 325mg Tab) 650 mg PO Q6 PRN PRN Reason: Fever >100.4 F Last Admin: 09/06/17 22:22 Dose: 650 mg Al Hydrox/Mg Hydrox/Simethicone (Maalox 30 Ml) 15 ml PO QID PRN PRN Reason: Indigestion / Heartburn Last Admin: 09/03/17 22:06 Dose: 15 ml Dolutegravir Sodium (Tivicay) 50 mg PO DAILY DRISS PRN Reason: Protocol Last Admin: 09/07/17 10:02 Dose: 50 mg Emtricitabine/Tenofovir (Truvada 200 Mg-300 Mg) 1 tab PO DAILY DRISS PRN Reason: Protocol Last Admin: 09/07/17 10:02 Dose: 1 tab Enoxaparin Sodium (Lovenox) 40 mg SC DAILY [facility] Last Admin: 09/07/17 10:03 Dose: Not Given Fluconazole (Diflucan) 200 mg PO QPM DRISS PRN Reason: Protocol Last Admin: 09/07/17 17:46 Dose: 200 mg Oxycodone/Acetaminophen (Percocet 5/325 Mg Tab) 1 tab PO Q6H PRN PRN Reason: Pain, moderate (4-7) Stop: 09/10/17 22:51 Trimethoprim/Sulfamethoxazole (Bactrim Ds Tab) 1 tab PO QID DRISS PRN Reason: Protocol Last Admin: 09/07/17 21:31 Dose: 1 tab - Labs Labs: 09/01/17 11:37 09/01/17 11:37 PT 13.0 SECONDS (9.7-12.2) H 08/30/17 00:59 INR 1.2 08/30/17 00:59 APTT 23 SECONDS (21-34) 08/30/17 00:59 - Constitutional Appears: No Acute Distress - Head Exam Head Exam: ATRAUMATIC, NORMAL INSPECTION, NORMOCEPHALIC - Eye Exam Eye Exam: EOMI, Normal appearance, PERRL Pupil Exam: NORMAL ACCOMODATION, PERRL - Respiratory Exam Respiratory Exam: Clear to Ausculation Bilateral, NORMAL BREATHING PATTERN - Cardiovascular Exam Cardiovascular Exam: REGULAR RHYTHM, +S1, +S2. absent: Murmur - GI/Abdominal Exam GI & Abdominal Exam: Soft, Normal Bowel Sounds. absent: Tenderness Assessment and Plan (1) History of HIV or AIDS Status: Acute (2) Odynophagia Status: Acute (3) Thrush of mouth and esophagus Status: Acute
[2017-09-08] MEDS: Oxycodone/Acetaminophen 5/325 mg Tab PO PRN ×2 (10:24→21:27)
[2017-09-08] MEDS: Enoxaparin 40 mg Syringe SC SCH (10:24)
[2017-09-08] MEDS: Tmp-Smz 800 mg-160 mg DS Tab PO SCH ×4 (10:24→21:27)
[2017-09-08] MEDS: Emtricitabine-Tenofovir 200 mg-300 mg Tab PO SCH (10:27)
[2017-09-08 11:08] LABS: BASO % 0.1 % (0.0-2.0); EOS % 0.1 % (0.0-4.0); HEMOGLOBIN 11.9 g/dL (12.0-18.0); LYMPH # 0.7 K/uL (1.0-4.3); LYMPH % 4.1 % (20.0-40.0); MEAN CELL VOLUME 78.8 fL (80.0-94.0); MEAN CORPUSCULAR HEMOGLOBIN 25.8 pg (27.0-31.0); MEAN CORPUSCULAR HGB CONC 32.8 g/dL (33.0-37.0); MONO # 0.7 K/uL (0.0-0.8); MONO % 3.8 % (0.0-10.0); NEUT # 15.9 K/uL (1.8-7.0); NEUT % 91.9 % (50.0-75.0); PLATELET COUNT 331 K/uL (130-400); RBC 4.59 Mil/uL (4.40-5.90); WHITE BLOOD COUNT 17.3 K/uL (4.8-10.8)
[2017-09-08 11:23] LABS: ALB/GLOB RATIO 0.9 (1.0-2.1); ALBUMIN 3.1 g/dL (3.5-5.0); ALT/SGPT 27 U/L (21-72); AST/SGOT 47 U/L (17-59); BLOOD UREA NITROGEN 18 mg/dL (9-20); CALCIUM 7.7 mg/dl (8.6-10.4); GFR AFRICAN-AMERICAN > 60; GFR NON-AFRICAN AMERICAN > 60
[2017-09-08 11:44] LABS: BANDS 22 % (0-2); LYMPHOCYTE 2 % (20-40); MONOCYTE 4 % (0-10); MYELOCYTE 4 % (0-0); NEUTROPHIL 68 % (50-75); PLATELET ESTIMATE NORMAL (NORMAL); TOTAL CELLS COUNTED 100
[2017-09-08 11:45] LABS: ANISOCYTOSIS SLIGHT; HYPOCHROMIC SLIGHT; POIKILOCYTOSIS SLIGHT; TOXIC GRANULATION PRESENT
--- NOTE | 2017-09-08 12:16 | CP.PCM.PN ---
Subjective - Date & Time of Evaluation Date of Evaluation: 09/08/17 Time of Evaluation: 09:00 - Subjective Subjective: weak cachectic afebrile iv rx in progress Objective - Vital Signs/Intake and Output Vital Signs (last 24 hours): Temp Pulse Resp BP Pulse Ox 97.4 F L 101 H 20 107/77 99 09/08/17 00:00 09/08/17 00:00 09/08/17 00:00 09/08/17 11:00 09/08/17 00:00 Intake and Output: 09/08/17 09/08/17 06:59 18:59 Intake Total 720 Balance 720 - Medications Medications: Current Medications Acetaminophen (Tylenol 325mg Tab) 650 mg PO Q6 PRN PRN Reason: Fever >100.4 F Last Admin: 09/06/17 22:22 Dose: 650 mg Al Hydrox/Mg Hydrox/Simethicone (Maalox 30 Ml) 15 ml PO QID PRN PRN Reason: Indigestion / Heartburn Last Admin: 09/03/17 22:06 Dose: 15 ml Dolutegravir Sodium (Tivicay) 50 mg PO DAILY DRISS PRN Reason: Protocol Last Admin: 09/08/17 10:27 Dose: 50 mg Emtricitabine/Tenofovir (Truvada 200 Mg-300 Mg) 1 tab PO DAILY DRISS PRN Reason: Protocol Last Admin: 09/08/17 10:27 Dose: 1 tab Fluconazole (Diflucan) 200 mg PO QPM DRISS PRN Reason: Protocol Last Admin: 09/07/17 17:46 Dose: 200 mg Oxycodone/Acetaminophen (Percocet 5/325 Mg Tab) 1 tab PO Q6H PRN PRN Reason: Pain, moderate (4-7) Stop: 09/10/17 22:51 Last Admin: 09/08/17 10:24 Dose: 1 tab Trimethoprim/Sulfamethoxazole (Bactrim Ds Tab) 1 tab PO QID DRISS PRN Reason: Protocol Last Admin: 09/08/17 10:24 Dose: 1 tab - Labs Labs: 09/08/17 10:59 09/08/17 10:59 PT 13.0 SECONDS (9.7-12.2) H 08/30/17 00:59 INR 1.2 08/30/17 00:59 APTT 23 SECONDS (21-34) 08/30/17 00:59 - Constitutional Appears: Non-toxic, Older Than Stated Age, Cachectic, Chronically Ill - Head Exam Head Exam: NORMOCEPHALIC - Eye Exam Eye Exam: PERRL. absent: Scleral icterus - ENT Exam ENT Exam: Mucous Membranes Dry. absent: Normal Oropharynx - Neck Exam Neck Exam: absent: Lymphadenopathy - Respiratory Exam Respiratory Exam: Decreased Breath Sounds - Cardiovascular Exam Cardiovascular Exam: REGULAR RHYTHM - GI/Abdominal Exam GI & Abdominal Exam: Distended, Soft - Rectal Exam Rectal Exam: Deferred - Exam Exam: NORMAL INSPECTION Assessment and Plan (1) History of HIV or AIDS Status: Acute (2) Odynophagia Status: Acute (3) Thrush of mouth and esophagus Status: Acute
[2017-09-09] MEDS: Sodium Chloride 0.9% 1,000 ML IV SCH ×2 (05:30→14:04)
--- NOTE | 2017-09-09 07:46 | CP.PCM.PN ---
Subjective - Date & Time of Evaluation Date of Evaluation: 09/08/17 Time of Evaluation: 17:00 - Subjective Subjective: Pt seen and examined by me Objective - Vital Signs/Intake and Output Vital Signs (last 24 hours): Temp Pulse Resp BP Pulse Ox 98.8 F 85 20 117/79 99 09/09/17 00:00 09/09/17 00:00 09/09/17 00:00 09/09/17 00:00 09/09/17 00:00 Intake and Output: 09/09/17 09/09/17 06:59 18:59 Intake Total 490 Balance 490 - Medications Medications: Current Medications Acetaminophen (Tylenol 325mg Tab) 650 mg PO Q6 PRN PRN Reason: Fever >100.4 F Last Admin: 09/06/17 22:22 Dose: 650 mg Al Hydrox/Mg Hydrox/Simethicone (Maalox 30 Ml) 15 ml PO QID PRN PRN Reason: Indigestion / Heartburn Last Admin: 09/03/17 22:06 Dose: 15 ml Dolutegravir Sodium (Tivicay) 50 mg PO DAILY DRISS PRN Reason: Protocol Last Admin: 09/08/17 10:27 Dose: 50 mg Emtricitabine/Tenofovir (Truvada 200 Mg-300 Mg) 1 tab PO DAILY DRISS PRN Reason: Protocol Last Admin: 09/08/17 10:27 Dose: 1 tab Sodium Chloride (Sodium Chloride 0.9%) 1,000 mls @ 100 mls/hr IV .Q10H DRISS Last Admin: 09/09/17 05:30 Dose: Not Given Oxycodone/Acetaminophen (Percocet 5/325 Mg Tab) 1 tab PO Q6H PRN PRN Reason: Pain, moderate (4-7) Stop: 09/10/17 22:51 Last Admin: 09/08/17 21:27 Dose: 1 tab Trimethoprim/Sulfamethoxazole (Bactrim Ds Tab) 1 tab PO QID DRISS PRN Reason: Protocol Last Admin: 09/08/17 21:27 Dose: 1 tab - Labs Labs: 09/08/17 10:59 09/08/17 10:59 PT 13.0 SECONDS (9.7-12.2) H 08/30/17 00:59 INR 1.2 08/30/17 00:59 APTT 23 SECONDS (21-34) 08/30/17 00:59 Assessment and Plan (1) History of HIV or AIDS Status: Acute (2) Odynophagia Status: Acute (3) Thrush of mouth and esophagus Status: Acute
[2017-09-09] MEDS: Tmp-Smz 800 mg-160 mg DS Tab PO SCH ×4 (09:06→21:22)
[2017-09-09] MEDS: Emtricitabine-Tenofovir 200 mg-300 mg Tab PO SCH (09:06)
[2017-09-09] MEDS: Oxycodone/Acetaminophen 5/325 mg Tab PO PRN ×2 (09:06→21:25)
--- NOTE | 2017-09-09 16:03 | CP.PCM.PN ---
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 PT AND SIGN OTHER VERY UPSET AND THEY VERBALIZED SEVERAL CONCERNS AND QUESTIONS REGARDING MEDICAL STAFF AND PLAN FOR D/C. I ADDRESSED ALL OF THEIR CONCERNS AND AM RECOMMENDING PALL CARE TO SEE PT AND DISCUSS GOALS OF CARE. PLAN: D/C TO CARE ONE [facility] HELD FOR NOW. DISCUSSED AT LENGTH GOALS OF CARE WITH PT AND FRIEND/SIGN OTHER JR JAY JAY. PALL CARE TO SEE THE PT TO DISCUSS END OF LIFE MEASURES AND GOALS OF CARE--- ERIKA BENOIT NOTIFIED BY ME ALREADY AND SHE WILL SEE PT. IVFS WITH [facility] TO BE STARTED; [facility]--PT IN AGREEMENT. ENCOURAGED TO THINK ABOUT GOALS OF CARE, I.E. PEG AND PPN. DR. MURILLO AWARE. Objective - Vital Signs/Intake and Output Vital Signs (last 24 hours): Temp Pulse Resp BP Pulse Ox 98.1 F 102 H 20 113/75 98 09/09/17 08:22 09/09/17 08:22 09/09/17 08:22 09/09/17 08:22 09/09/17 08:22 Intake and Output: 09/09/17 09/09/17 06:59 18:59 Intake Total 490 480 Balance 490 480 - Medications Medications: Current Medications Acetaminophen (Tylenol 325mg Tab) 650 mg PO Q6 PRN PRN Reason: Fever >100.4 F Last Admin: 09/06/17 22:22 Dose: 650 mg Al Hydrox/Mg Hydrox/Simethicone (Maalox 30 Ml) 15 ml PO QID PRN PRN Reason: Indigestion / Heartburn Last Admin: 09/03/17 22:06 Dose: 15 ml Dolutegravir Sodium (Tivicay) 50 mg PO DAILY DRISS PRN Reason: Protocol Last Admin: 09/09/17 09:06 Dose: 50 mg Emtricitabine/Tenofovir (Truvada 200 Mg-300 Mg) 1 tab PO DAILY DRISS PRN Reason: Protocol Last Admin: 09/09/17 09:06 Dose: 1 tab Multivitamins/Vitamin C 10 ml/ (Sodium Chloride) 1,010 mls @ 100 mls/hr IV Q24H DRISS Fluconazole (Diflucan Iv 200 Mg/100 Ml Ns) 100 mls @ 100 mls/hr IVPB QPM DRISS PRN Reason: Protocol Stop: 09/30/17 18:01 Sodium Chloride (Sodium Chloride 0.9%) 1,000 mls @ 100 mls/hr IV .Q10H DRISS Oxycodone/Acetaminophen (Percocet 5/325 Mg Tab) 1 tab PO Q6H PRN PRN Reason: Pain, moderate (4-7) Stop: 09/10/17 22:51 Last Admin: 09/09/17 09:06 Dose: 1 tab Trimethoprim/Sulfamethoxazole (Bactrim Ds Tab) 1 tab PO QID DRISS PRN Reason: Protocol Stop: 09/21/17 18:01 Last Admin: 09/09/17 14:04 Dose: 1 tab - Labs Labs: 09/08/17 10:59 09/08/17 10:59 PT 13.0 SECONDS (9.7-12.2) H 08/30/17 00:59 INR 1.2 08/30/17 00:59 APTT 23 SECONDS (21-34) 08/30/17 00:59
[2017-09-09] MEDS: Fluconazole IV 200mg/100 ml NS 100 ML IVPB SCH (17:29)
[2017-09-09] MEDS: Multivitamin (MVI) 10 ML in Sodium Chloride 0.9% 1,000 ML IV SCH ×2 (17:30→19:13)
--- NOTE | 2017-09-09 17:39 | CP.PCM.PN ---
Subjective - Date & Time of Evaluation Date of Evaluation: 09/09/17 Time of Evaluation: 09:00 - Subjective Subjective: IV and PO rx renewed for d/c to [facility] cont HAART, Diflucan , Bactrim and Zithromax Objective - Vital Signs/Intake and Output Vital Signs (last 24 hours): Temp Pulse Resp BP Pulse Ox 98.2 F 81 20 113/73 98 09/09/17 15:15 09/09/17 15:15 09/09/17 15:15 09/09/17 15:15 09/09/17 15:15 Intake and Output: 09/09/17 09/09/17 06:59 18:59 Intake Total 490 480 Balance 490 480 - Medications Medications: Current Medications Acetaminophen (Tylenol 325mg Tab) 650 mg PO Q6 PRN PRN Reason: Fever >100.4 F Last Admin: 09/06/17 22:22 Dose: 650 mg Al Hydrox/Mg Hydrox/Simethicone (Maalox 30 Ml) 15 ml PO QID PRN PRN Reason: Indigestion / Heartburn Last Admin: 09/03/17 22:06 Dose: 15 ml Cyproheptadine HCl (Periactin) 2 mg PO QID DRISS Dolutegravir Sodium (Tivicay) 50 mg PO DAILY DRISS PRN Reason: Protocol Last Admin: 09/09/17 09:06 Dose: 50 mg Emtricitabine/Tenofovir (Truvada 200 Mg-300 Mg) 1 tab PO DAILY DRISS PRN Reason: Protocol Last Admin: 09/09/17 09:06 Dose: 1 tab Multivitamins/Vitamin C 10 ml/ (Sodium Chloride) 1,010 mls @ 100 mls/hr IV Q24H DRISS Fluconazole (Diflucan Iv 200 Mg/100 Ml Ns) 100 mls @ 100 mls/hr IVPB QPM DRISS PRN Reason: Protocol Stop: 09/30/17 18:01 Last Admin: 09/09/17 17:29 Dose: 100 mls/hr Sodium Chloride (Sodium Chloride 0.9%) 1,000 mls @ 100 mls/hr IV .Q10H DRISS Oxycodone/Acetaminophen (Percocet 5/325 Mg Tab) 1 tab PO Q6H PRN PRN Reason: Pain, moderate (4-7) Stop: 09/10/17 22:51 Last Admin: 09/09/17 09:06 Dose: 1 tab Trimethoprim/Sulfamethoxazole (Bactrim Ds Tab) 1 tab PO QID DRISS PRN Reason: Protocol Stop: 09/21/17 18:01 Last Admin: 09/09/17 17:29 Dose: 1 tab - Labs Labs: 09/08/17 10:59 09/08/17 10:59 PT 13.0 SECONDS (9.7-12.2) H 08/30/17 00:59 INR 1.2 08/30/17 00:59 APTT 23 SECONDS (21-34) 08/30/17 00:59 - Constitutional Appears: Cachectic - Head Exam Head Exam: NORMOCEPHALIC - Eye Exam Eye Exam: absent: Scleral icterus - ENT Exam ENT Exam: Mucous Membranes Dry - Neck Exam Neck Exam: absent: Lymphadenopathy - Respiratory Exam Respiratory Exam: Decreased Breath Sounds - Cardiovascular Exam Cardiovascular Exam: REGULAR RHYTHM - GI/Abdominal Exam GI & Abdominal Exam: Distended - Rectal Exam Rectal Exam: Deferred - Exam Exam: NORMAL INSPECTION - Extremities Exam Extremities Exam: absent: Pedal Edema - Back Exam Back Exam: absent: CVA tenderness (L), CVA tenderness (R) Assessment and Plan (1) History of HIV or AIDS Status: Acute (2) Odynophagia Status: Acute (3) Thrush of mouth and esophagus Status: Acute
[2017-09-09] MEDS: Cyproheptadine 2 mg Tab PO SCH ×2 (18:22→21:22)
--- NOTE | 2017-09-09 23:37 | CP.PCM.PN ---
Subjective - Date & Time of Evaluation Date of Evaluation: 09/09/17 Time of Evaluation: 19:00 - Subjective Subjective: Pt seen and examined, is depressed, discussed care of plan Objective - Vital Signs/Intake and Output Vital Signs (last 24 hours): Temp Pulse Resp BP Pulse Ox 98.2 F 81 20 113/73 98 09/09/17 15:15 09/09/17 15:15 09/09/17 15:15 09/09/17 15:15 09/09/17 15:15 Intake and Output: 09/09/17 09/10/17 18:59 06:59 Intake Total 480 600 Balance 480 600 - Medications Medications: Current Medications Acetaminophen (Tylenol 325mg Tab) 650 mg PO Q6 PRN PRN Reason: Fever >100.4 F Last Admin: 09/06/17 22:22 Dose: 650 mg Al Hydrox/Mg Hydrox/Simethicone (Maalox 30 Ml) 15 ml PO QID PRN PRN Reason: Indigestion / Heartburn Last Admin: 09/03/17 22:06 Dose: 15 ml Azithromycin (Zithromax) 1,200 mg PO QWK DRISS PRN Reason: Protocol Last Admin: 09/09/17 21:30 Dose: 1,200 mg Cyproheptadine HCl (Periactin) 2 mg PO QID DRISS Last Admin: 09/09/17 21:22 Dose: 2 mg Dolutegravir Sodium (Tivicay) 50 mg PO DAILY DRISS PRN Reason: Protocol Last Admin: 09/09/17 09:06 Dose: 50 mg Emtricitabine/Tenofovir (Truvada 200 Mg-300 Mg) 1 tab PO DAILY DRISS PRN Reason: Protocol Last Admin: 09/09/17 09:06 Dose: 1 tab Multivitamins/Vitamin C 10 ml/ (Sodium Chloride) 1,010 mls @ 100 mls/hr IV Q24H DRISS Last Admin: 09/09/17 19:13 Dose: 100 mls/hr Fluconazole (Diflucan Iv 200 Mg/100 Ml Ns) 100 mls @ 100 mls/hr IVPB QPM DRISS PRN Reason: Protocol Stop: 09/30/17 18:01 Last Admin: 09/09/17 17:29 Dose: 100 mls/hr Sodium Chloride (Sodium Chloride 0.9%) 1,000 mls @ 100 mls/hr IV .Q10H DRISS Oxycodone/Acetaminophen (Percocet 5/325 Mg Tab) 1 tab PO Q6H PRN PRN Reason: Pain, moderate (4-7) Stop: 09/10/17 22:51 Last Admin: 09/09/17 21:25 Dose: 1 tab Trimethoprim/Sulfamethoxazole (Bactrim Ds Tab) 1 tab PO QID DRISS PRN Reason: Protocol Stop: 09/21/17 18:01 Last Admin: 09/09/17 21:22 Dose: 1 tab - Labs Labs: 09/08/17 10:59 09/08/17 10:59 PT 13.0 SECONDS (9.7-12.2) H 08/30/17 00:59 INR 1.2 08/30/17 00:59 APTT 23 SECONDS (21-34) 08/30/17 00:59 - Constitutional Appears: No Acute Distress - Head Exam Head Exam: ATRAUMATIC, NORMAL INSPECTION, NORMOCEPHALIC - Eye Exam Eye Exam: EOMI, Normal appearance, PERRL Pupil Exam: NORMAL ACCOMODATION, PERRL - Respiratory Exam Respiratory Exam: Clear to Ausculation Bilateral, NORMAL BREATHING PATTERN - Cardiovascular Exam Cardiovascular Exam: REGULAR RHYTHM, +S1, +S2. absent: Murmur - GI/Abdominal Exam GI & Abdominal Exam: Soft, Normal Bowel Sounds. absent: Tenderness Assessment and Plan (1) History of HIV or AIDS Assessment & Plan: IV and PO rx renewed for d/c to [facility] cont [facility], Diflucan , Bactrim and Zithromax Status: Acute (2) Odynophagia Status: Acute (3) Thrush of mouth and esophagus Status: Acute
[2017-09-10 01:14] VITALS: O2SAT 97
[2017-09-10] MEDS: Sodium Chloride 0.9% 1,000 ML IV SCH ×3 (04:45→14:00)
[2017-09-10] MEDS: Tmp-Smz 800 mg-160 mg DS Tab PO SCH ×3 (10:47→17:39)
[2017-09-10] MEDS: Cyproheptadine 2 mg Tab PO SCH ×3 (10:47→17:43)
[2017-09-10] MEDS: Emtricitabine-Tenofovir 200 mg-300 mg Tab PO SCH (10:48)
[2017-09-10] MEDS: Oxycodone/Acetaminophen 5/325 mg Tab PO PRN ×2 (10:48→17:44)
[2017-09-10 11:19] LABS: HEMOGLOBIN 10.8 g/dL (12.0-18.0); MEAN CELL VOLUME 78.5 fL (80.0-94.0); MEAN CORPUSCULAR HEMOGLOBIN 26.5 pg (27.0-31.0); MEAN CORPUSCULAR HGB CONC 33.8 g/dL (33.0-37.0); RBC 4.08 Mil/uL (4.40-5.90); WHITE BLOOD COUNT 11.4 K/uL (4.8-10.8)
[2017-09-10 11:36] LABS: ALB/GLOB RATIO 0.9 (1.0-2.1); ALT/SGPT 31 U/L (21-72); AST/SGOT 43 U/L (17-59); BLOOD UREA NITROGEN 14 mg/dL (9-20); CALCIUM 7.9 mg/dl (8.6-10.4); GFR AFRICAN-AMERICAN > 60; GFR NON-AFRICAN AMERICAN > 60
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
[2017-09-10] MEDS: Multivitamin (MVI) 10 ML in Sodium Chloride 0.9% 1,000 ML IV SCH (17:00)
--- NOTE | 2017-09-10 17:09 | CP.PCM.PN ---
Objective - Vital Signs/Intake and Output Vital Signs (last 24 hours): Temp Pulse Resp BP Pulse Ox 97.6 F 83 20 99/72 L 97 09/10/17 08:00 09/10/17 08:00 09/10/17 08:00 09/10/17 08:00 09/10/17 00:00 Intake and Output: 09/10/17 09/10/17 06:59 18:59 Intake Total 1700 1100 Balance 1700 1100 - Medications Medications: Current Medications Acetaminophen (Tylenol 325mg Tab) 650 mg PO Q6 PRN PRN Reason: Fever >100.4 F Last Admin: 09/06/17 22:22 Dose: 650 mg Al Hydrox/Mg Hydrox/Simethicone (Maalox 30 Ml) 15 ml PO QID PRN PRN Reason: Indigestion / Heartburn Last Admin: 09/03/17 22:06 Dose: 15 ml Azithromycin (Zithromax) 1,200 mg PO QWK DRISS PRN Reason: Protocol Last Admin: 09/09/17 21:30 Dose: 1,200 mg Cyproheptadine HCl (Periactin) 2 mg PO QID DRISS Last Admin: 09/10/17 14:50 Dose: 2 mg Dolutegravir Sodium (Tivicay) 50 mg PO DAILY DRISS PRN Reason: Protocol Last Admin: 09/10/17 10:48 Dose: 50 mg Emtricitabine/Tenofovir (Truvada 200 Mg-300 Mg) 1 tab PO DAILY DRISS PRN Reason: Protocol Last Admin: 09/10/17 10:48 Dose: 1 tab Multivitamins/Vitamin C 10 ml/ (Sodium Chloride) 1,010 mls @ 100 mls/hr IV Q24H [facility] Last Admin: 09/09/17 19:13 Dose: 100 mls/hr Fluconazole (Diflucan Iv 200 Mg/100 Ml Ns) 100 mls @ 100 mls/hr IVPB QPM DRISS PRN Reason: Protocol Stop: 09/30/17 18:01 Last Admin: 09/09/17 17:29 Dose: 100 mls/hr Sodium Chloride (Sodium Chloride 0.9%) 1,000 mls @ 100 mls/hr IV .Q10H [facility] Last Admin: 09/10/17 14:00 Dose: Not Given Oxycodone/Acetaminophen (Percocet 5/325 Mg Tab) 1 tab PO Q6H PRN PRN Reason: Pain, moderate (4-7) Stop: 09/10/17 22:51 Last Admin: 09/10/17 10:48 Dose: 1 tab Trimethoprim/Sulfamethoxazole (Bactrim Ds Tab) 1 tab PO QID DRISS PRN Reason: Protocol Stop: 09/21/17 18:01 Last Admin: 09/10/17 14:50 Dose: 1 tab - Labs Labs: 09/10/17 11:08 09/10/17 11:08 PT 13.0 SECONDS (9.7-12.2) H 08/30/17 00:59 INR 1.2 08/30/17 00:59 APTT 23 SECONDS (21-34) 08/30/17 00:59 Assessment and Plan - Assessment and Plan (Free Text) Assessment: Patient and family ok with discharge to [facility] at [place]. Discussed with DR Arteaga, plan to discharge today. Patient is alert and orientedx3, verbalized understanding of the discharge plan. Will continue with all present medications as instructed.
[2017-09-10] MEDS: Fluconazole IV 200mg/100 ml NS 100 ML IVPB SCH (17:41)
[2017-09-10 17:45] VITALS: BP 109/72; PULSE 108; TEMP 98.8
--- NOTE | 2017-09-11 10:30 | CP.PCM.DIS ---
Provider - Provider Date of Admission: 08/30/17 02:54 Attending physician: Tho Arteaga MD Time Spent in preparation of Discharge (in minutes): 45 Diagnosis - Discharge Diagnosis (1) History of HIV or AIDS Status: Acute (2) Odynophagia Status: Acute (3) Thrush of mouth and esophagus Status: Acute Hospital Course - Lab Results Lab Results: Micro Results 08/31/17 20:00 Blood-Venous Blood Culture - Final NO GROWTH AFTER 5 DAYS 08/31/17 20:00 Blood-Venous Gram Stain - Final TEST NOT PERFORMED 08/31/17 19:30 Blood-Venous Blood Culture - Final NO GROWTH AFTER 5 DAYS 08/31/17 19:30 Blood-Venous Gram Stain - Final TEST NOT PERFORMED 08/30/17 01:30 Blood Blood Culture - Final NO GROWTH AFTER 5 DAYS 08/30/17 01:30 Blood Gram Stain - Final TEST NOT PERFORMED 08/30/17 01:00 Blood Blood Culture - Final NO GROWTH AFTER 5 DAYS 08/30/17 01:00 Blood Gram Stain - Final TEST NOT PERFORMED Most Recent Lab Values WBC 11.4 K/uL (4.8-10.8) H 09/10/17 11:08 RBC 4.08 Mil/uL (4.40-5.90) L 09/10/17 11:08 Hgb 10.8 g/dL (12.0-18.0) L 09/10/17 11:08 Hct 32.0 % (35.0-51.0) L 09/10/17 11:08 MCV 78.5 fL (80.0-94.0) L 09/10/17 11:08 MCH 26.5 pg (27.0-31.0) L 09/10/17 11:08 MCHC 33.8 g/dL (33.0-37.0) 09/10/17 11:08 RDW 15.0 % (11.5-14.5) H 09/10/17 11:08 Plt Count 246 K/uL (130-400) 09/10/17 11:08 MPV 8.0 fL (7.2-11.7) 09/10/17 11:08 Neut % (Auto) 91.9 % (50.0-75.0) H 09/08/17 10:59 Lymph % (Auto) 4.1 % (20.0-40.0) L 09/08/17 10:59 [place] % (Auto) 3.8 % (0.0-10.0) 09/08/17 10:59 Eos % (Auto) 0.1 % (0.0-4.0) 09/08/17 10:59 Baso % (Auto) 0.1 % (0.0-2.0) 09/08/17 10:59 Neut # (Auto) 15.9 K/uL (1.8-7.0) H 09/08/17 10:59 Lymph # (Auto) 0.7 K/uL (1.0-4.3) L 09/08/17 10:59 [place] # (Auto) 0.7 K/uL (0.0-0.8) 09/08/17 10:59 Eos # (Auto) 0.0 K/uL (0.0-0.7) 09/08/17 10:59 Baso # (Auto) 0.0 K/uL (0.0-0.2) 09/08/17 10:59 Neutrophils % (Manual) 68 % (50-75) 09/08/17 10:59 Band Neutrophils % 22 % (0-2) H* 09/08/17 10:59 Lymphocytes % (Manual) 2 % (20-40) L 09/08/17 10:59 Monocytes % (Manual) 4 % (0-10) 09/08/17 10:59 Eosinophils % (Manual) 1 % (0-4) 08/31/17 08:01 Myelocytes % 4 % (0-0) H 09/08/17 10:59 Toxic Granulation Present 09/08/17 10:59 Platelet Estimate Normal (NORMAL) 09/08/17 10:59 Hypochromasia (manual) Slight 09/08/17 10:59 Poikilocytosis (manual Slight 09/08/17 10:59 Anisocytosis (manual) Slight 09/08/17 10:59 Microcytosis (manual) Slight 08/31/17 08:01 Ovalocytes Slight 08/31/17 08:01 PT 13.0 SECONDS (9.7-12.2) H 08/30/17 00:59 INR 1.2 08/30/17 00:59 APTT 23 SECONDS (21-34) 08/30/17 00:59 Sodium 127 mmol/L (132-148) L 09/10/17 11:08 Potassium 3.9 mmol/L (3.6-5.2) 09/10/17 11:08 Chloride 97 mmol/L (98-107) L 09/10/17 11:08 Carbon Dioxide 22 mmol/L (22-30) 09/10/17 11:08 Anion Gap 12 (10-20) 09/10/17 11:08 BUN 14 mg/dL (9-20) 09/10/17 11:08 Creatinine 1.0 mg/dL (0.8-1.5) 09/10/17 11:08 Est GFR ( Amer) > 60 09/10/17 11:08 Est GFR (Non-Af Amer) > 60 09/10/17 11:08 Random Glucose 100 mg/dL (75-110) 09/10/17 11:08 Lactic Acid 1.9 mmol/L (0.7-2.1) 08/31/17 20:00 Calcium 7.9 mg/dl (8.6-10.4) L 09/10/17 11:08 Total Bilirubin 0.5 mg/dL (0.2-1.3) 09/10/17 11:08 AST 43 U/L (17-59) 09/10/17 11:08 ALT 31 U/L (21-72) 09/10/17 11:08 Alkaline Phosphatase 122 U/L (38-126) 09/10/17 11:08 Lactate Dehydrogenase 542 U/L (313-618) 08/30/17 00:59 Total Protein 6.4 g/dL (6.3-8.3) 09/10/17 11:08 Albumin 3.0 g/dL (3.5-5.0) L 09/10/17 11:08 Globulin 3.5 gm/dL (2.2-3.9) 09/10/17 11:08 Albumin/Globulin Ratio 0.9 (1.0-2.1) L 09/10/17 11:08 Absolute Lymphs (Flow) 563 Cells/mcL (850-3900) L 09/02/17 07:00 % CD4 Cells 1 Percent (30-61) L 09/02/17 07:00 Absolute CD4 Count <20 Cells/mcL (490-1740) L 09/02/17 07:00 T-Help/Suppress Ratio 0.01 Ratio (0.86-5.00) L 09/02/17 07:00 % CD8 Cells 75 Percent (12-42) H 09/02/17 07:00 Absolute CD8 Count 421 Cells/mcL (180-1170) 09/02/17 07:00 T-Lymph Analys Comment See note 09/02/17 07:00 Cryptococcus Ag Negative (NEGATIVE) 09/01/17 11:37 Hepatitis A IgM Ab Negative (NEGATIVE) 09/01/17 14:19 Hep Bs Antigen Negative (NEGATIVE) 09/01/17 14:19 Hep B Core IgM Ab Negative (NEGATIVE) 09/01/17 14:19 Hepatitis C Antibody Reactive (NEGATIVE) 09/01/17 14:19 HIV-1 Antibody Positive (Negative) H 09/02/17 07:00 HIV-1 RNA Qnt (RT-PCR) 4.39 (Not Detected) H 09/02/17 07:00 HIV-2 Antibody Negative (Negative) 09/02/17 07:00 HIV 1&2 Ag/Ab, 4th Gen Reactive (Nonreactive) H 09/02/17 07:00 HIV 1&2 Antibody Screen Reactive (NEGATIVE) 09/02/17 07:00 Influenza Typ A,B (EIA) Negative for flu a/b (NEGATIVE) 08/31/17 Unknown - Hospital Course Hospital Course: Patient and family ok with discharge to [facility] at [place]. , plan to discharge today. Patient is alert and orientedx3, verbalized understanding of the discharge plan. Will continue with all present medications as instructed. Discharge Exam - Head Exam Head Exam: ATRAUMATIC, NORMAL INSPECTION, NORMOCEPHALIC Discharge Plan - Discharge Medications Prescriptions: Sulfamethoxazole/Trimethoprim [Bactrim Ds Tablet] 1 each PO QID 10 Days tablet Fluconazole [Diflucan] 200 mg PO DAILY 10 Days tab - Follow Up Plan Condition: FAIR Disposition: REHAB FACILITY/REHAB UNIT Instructions: HIV/AIDS (DC), Thrush (DC), Dysphagia (DC), Sulfamethoxazole and Trimethoprim, Fluconazole Referrals: Tho Arteaga MD [Staff Provider] - Pablo Melendez MD [Staff Provider] -
== END 2017-09-10 20:50 | DRG 714 ==
LOC: C.ER 00:04 → C.3T 02:54
PROVIDERS: ADMIT Internal Medicine; ATTEND Internal Medicine
DX: B20 Human immunodeficiency virus [HIV] disease (principal); R64 Cachexia; B37.81 Candidal esophagitis; B37.0 Candidal stomatitis; Z87.891 Personal history of nicotine dependence; Z66 Do not resuscitate; D72.829 Elevated white blood cell count, unspecified; D64.9 Anemia, unspecified; R13.10 Dysphagia, unspecified